=== PATIENT | female | born 1985 | race Caucasian/White ===

== ENCOUNTER → 2020-08-30 | Outpatient (CLI) | payer BC ==
[~2020-08-30] MED LIST: CYCLOBENZAPRINE5 MG PO; HYDROCODON-ACE1 EAC4 PO; IBUPROFEN800 MG PO; OMNICEF 300 MG300 MG PO; PREDNISONE20 MG PO; PROVENTIL HFA6.7 GM INH; TESSALON PERLE100 MG PO; ZITHROMAX1 GM PO
== END ==
LOC: KOH-I 08:00
DX: R74.8 Abnormal levels of other serum enzymes (principal); K76.0 Fatty (change of) liver, not elsewhere classified
CPT/HCPCS: 76705

== ENCOUNTER 2021-01-17 04:16 | Emergency (ER) | payer BC, OTHER ==
[~2021-01-17 04:16] MED LIST changes: -CYCLOBENZAPRINE5 MG PO; -HYDROCODON-ACE1 EAC4 PO; -IBUPROFEN800 MG PO
[2021-01-17 06:52] LABS: HEMOGLOBIN 13.8 gm/dl (12.3-15.3); RED BLOOD COUNT 4.65 M/UL (4.00-5.10); WHITE BLOOD COUNT 13.4 K/UL (4.5-11.0)
[2021-01-17 07:28] LABS: BUN/CREATININE RATIO 25 (0-10)
[2021-01-17] MEDS ORDERED: HYDROCODON-ACE1 EAC4 PO (11:59)
[2021-01-17] MEDS ORDERED: IBUPROFEN800 MG PO (11:59)
[2021-01-17] MEDS ORDERED: CYCLOBENZAPRINE5 MG PO (11:59)
== END 2021-01-17 12:25 | disposition home or self-care (01) ==
LOC: ER1 04:16
PROVIDERS: Family Medicine
DX: R51.9 Headache, unspecified (principal); Z79.899 Other long term (current) drug therapy; M54.12 Radiculopathy, cervical region; Z88.0 Allergy status to penicillin; Z88.1 Allergy status to other antibiotic agents; Z88.8 Allergy status to other drugs, medicaments and biological substances
CPT/HCPCS: 70450; 72125; 72141; 80053; 85025; 85652; 86140; 96374; 96375; 99284; J0780; J1885; J2060

== ENCOUNTER 2021-01-19 10:22 | Emergency (ER) | payer BC, OTHER ==
[~2021-01-19 10:22] MED LIST changes: +CYCLOBENZAPRINE5 MG PO; +HYDROCODON-ACE1 EAC4 PO; +IBUPROFEN800 MG PO
[2021-01-19] MEDS ORDERED: PREDNISONE20 MG PO (15:40)
== END 2021-01-19 16:06 | disposition home or self-care (01) ==
LOC: ER1 10:22
DX: M50.20 Other cervical disc displacement, unspecified cervical region (principal); R20.0 Anesthesia of skin; J45.909 Unspecified asthma, uncomplicated; Z90.49 Acquired absence of other specified parts of digestive tract; Z88.2 Allergy status to sulfonamides; Z88.8 Allergy status to other drugs, medicaments and biological substances; Z79.899 Other long term (current) drug therapy
CPT/HCPCS: 96372; 99283; J1100

== ENCOUNTER 2021-08-31 09:24 | Emergency (ER) | payer BC ==
[2021-08-31 14:23] LABS: HEMOGLOBIN 14.8 gm/dl (12.3-15.3); RED BLOOD COUNT 4.91 M/UL (4.00-5.10); WHITE BLOOD COUNT 15.4 K/UL (4.5-11.0)
[2021-08-31] MEDS ORDERED: ACYCLOVIR800 MG PO (15:47)
[2021-08-31] MEDS ORDERED: NEURONTIN300 MG PO (15:49)
[2021-08-31 16:17] LABS: BUN/CREATININE RATIO 23 (0-10)
== END 2021-08-31 15:27 | disposition home or self-care (01) ==
LOC: ER1 09:24
PROVIDERS: Nurse Practitioner
DX: G50.0 Trigeminal neuralgia (principal); J45.909 Unspecified asthma, uncomplicated; I10 Essential (primary) hypertension; Z88.0 Allergy status to penicillin; Z90.49 Acquired absence of other specified parts of digestive tract
CPT/HCPCS: 72125; 80048; 85025; 85652; 86140; 93005; 99284; J1100

== ENCOUNTER 2021-09-04 12:32 | Inpatient (IN) | payer BC ==
[~2021-09-04] VITALS: Ht 162.6 cm; Wt 113.4 kg
[~2021-09-04 12:32] MED LIST changes: +ACYCLOVIR800 MG PO; +NEURONTIN300 MG PO
[2021-09-04] MEDS ORDERED: XARELTO20 MG PO (13:25)
[2021-09-04] MEDS ORDERED: PROZAC40 MG PO (13:25)
[2021-09-04] MEDS ORDERED: LISINOPRIL5 MG PO (13:26)
[2021-09-04] MEDS ORDERED: TRILEPTAL600 MG PO (13:26)
[2021-09-04] MEDS ORDERED: GLUCOPHAGE 500500 MG PO (13:26)
[2021-09-04 13:27] LABS: HEMOGLOBIN 14.3 gm/dl (12.3-15.3); RED BLOOD COUNT 4.8 M/UL (4.00-5.10); WHITE BLOOD COUNT 10.8 K/UL (4.5-11.0)
[2021-09-04] MEDS ORDERED: ROBAXIN PO (13:27)
[2021-09-04] MEDS ORDERED: CLINDAMYCIN HC300 MG PO (13:27)
[2021-09-04] MEDS ORDERED: MELATONIN3 MG PO (13:27)
[2021-09-04] MEDS ORDERED: NORETHINDRONE0.35 MG PO (13:28)
[2021-09-04 13:47] LABS: BUN/CREATININE RATIO 16 (0-10)
[2021-09-04] MEDS ORDERED: PLAQUENIL200 MG PO (14:23)
[2021-09-05 07:48] LABS: BUN/CREATININE RATIO 23 (0-10)
[2021-09-05 08:28] LABS: WHITE BLOOD COUNT 12.6 K/UL (4.5-11.0)
[2021-09-05 08:31] LABS: RED BLOOD COUNT 4.14 M/UL (4.00-5.10)
[2021-09-06 07:18] LABS: HEMOGLOBIN 11.7 gm/dl (12.3-15.3); WHITE BLOOD COUNT 10.9 K/UL (4.5-11.0)
[2021-09-06 07:37] LABS: BUN/CREATININE RATIO 16 (0-10)
[2021-09-07 07:12] LABS: HEMOGLOBIN 11.7 gm/dl (12.3-15.3); RED BLOOD COUNT 4.02 M/UL (4.00-5.10); WHITE BLOOD COUNT 9.8 K/UL (4.5-11.0)
[2021-09-07 07:46] LABS: BUN/CREATININE RATIO 12 (0-10)
[2021-09-07] MEDS ORDERED: CLINDAMYCIN HC300 MG PO (08:30)
[2021-09-07] MEDS ORDERED: HYDROCODON-ACE1 EAC4 PO (08:36)
[2021-09-07] MEDS ORDERED: IBU800 MG PO ×2 (08:36→08:39)
--- NOTE | 2021-09-07 15:05 | NUR ---
ATTEMPTED TO REMOVE JAYLENE DRAINS X2 PER MD ORDER. DRAIN X1 NOTED AND PULLED WITH EASE. NO COMPLAINTS. DR. GREENFIELD NOTIFIED OF ONLY ONE DRAIN VISABLE AT THIS TIME. MD STATED HE DID NOT PULL SECOND DRAIN AND TO USE LIGHT TO VISUALLY DRAIN AND USE BETADINE FORCEPS TO REMOVE DRAIN.
== END 2021-09-07 15:09 | disposition home or self-care (01) | DRG 144 ==
LOC: ZOBSOF 12:32 → MED SURG 4 12:32
PROVIDERS: Dentist Oral and Maxillofacial Surgery; Physician Assistant; ADMIT Internal Medicine
PROC: 0HR1XJ3 Replacement of Face Skin with Synthetic Substitute, Full Thickness, External Approach (ICD-10-PCS; principal; 2021-09-04 18:05)
PROC: 0J910ZZ Drainage of Face Subcutaneous Tissue and Fascia, Open Approach (ICD-10-PCS; principal; 2021-09-04 18:05)
PROC: 0CDXXZ0 Extraction of Lower Tooth, Single, External Approach (ICD-10-PCS; principal; 2021-09-04 18:05)
PROC: 0C9 Mouth and Throat, Drainage (ICD-10-PCS; principal; 2021-09-04 18:05)
DX: K04.4 Acute apical periodontitis of pulpal origin (principal); D68.61 Antiphospholipid syndrome; H33.8 Other retinal detachments; Z20.822 Contact with and (suspected) exposure to COVID-19; Z68.41 Body mass index [BMI] 40.0-44.9, adult; M27.2 Inflammatory conditions of jaws; K04.7 Periapical abscess without sinus; E11.9 Type 2 diabetes mellitus without complications; E66.9 Obesity, unspecified; I10 Essential (primary) hypertension; M32.9 Systemic lupus erythematosus, unspecified; E28.2 Polycystic ovarian syndrome; G43.909 Migraine, unspecified, not intractable, without status migrainosus; F41.9 Anxiety disorder, unspecified; K76.0 Fatty (change of) liver, not elsewhere classified; Z79.01 Long term (current) use of anticoagulants; Z88.1 Allergy status to other antibiotic agents; Z88.0 Allergy status to penicillin; Z88.8 Allergy status to other drugs, medicaments and biological substances; Z98.1 Arthrodesis status; Z90.49 Acquired absence of other specified parts of digestive tract; Z88.2 Allergy status to sulfonamides; Z95.0 Presence of cardiac pacemaker; Z80.8 Family history of malignant neoplasm of other organs or systems; Z80.2 Family history of malignant neoplasm of other respiratory and intrathoracic organs; Z83.3 Family history of diabetes mellitus
CPT/HCPCS: 36415; 80048; 80053; 82962; 84703; 85025; 85027; 87070; 87205; J1100; J1170; J1885; J2001; J2250; J2270; J2405; J2704; J3010; J7030; J7120; U0002

== ENCOUNTER 2021-09-12 08:48 | Inpatient (IN) | payer BC ==
[~2021-09-12] VITALS: Ht 162.6 cm; Wt 110.2 kg
[~2021-09-12 08:48] MED LIST changes: +CLINDAMYCIN HC300 MG PO; +GLUCOPHAGE 500500 MG PO; +IBU800 MG PO; +MELATONIN3 MG PO; +NORETHINDRONE0.35 MG PO; +PLAQUENIL200 MG PO; +PROZAC40 MG PO; +TRILEPTAL600 MG PO; +XARELTO20 MG PO
[2021-09-12 10:32] LABS: RED BLOOD COUNT 4.13 M/UL (4.00-5.10); WHITE BLOOD COUNT 12.2 K/UL (4.5-11.0)
[2021-09-12] MEDS ORDERED: CLIND PH-BENZOY45 GM TP (13:18)
[2021-09-12] MEDS ORDERED: VITAMIN D250 MCG PO (13:19)
[2021-09-12] MEDS ORDERED: VITAMIN B-121000 MC3 PO (13:19)
[2021-09-12] MEDS ORDERED: FOLIC ACID 1 MG1 MG PO (13:20)
[2021-09-12] MEDS ORDERED: PROVENTIL HFA6.7 GM INH (13:20)
[2021-09-12] MEDS ORDERED: AMITRIPTYLINE H10 MG PO (13:21)
[2021-09-12] MEDS ORDERED: LISINOPRIL5 MG PO (13:26)
[2021-09-12] MEDS ORDERED: ROBAXIN 750 MG750 MG PO (13:27)
[2021-09-13 07:27] LABS: HEMOGLOBIN 10.9 gm/dl (12.3-15.3); RED BLOOD COUNT 3.85 M/UL (4.00-5.10); WHITE BLOOD COUNT 11.9 K/UL (4.5-11.0)
[2021-09-13 07:38] LABS: BUN/CREATININE RATIO 15 (0-10)
[2021-09-14 05:16] LABS: HEMOGLOBIN 10.9 gm/dl (12.3-15.3); RED BLOOD COUNT 3.84 M/UL (4.00-5.10)
[2021-09-14 05:20] LABS: BUN/CREATININE RATIO 12 (0-10)
[2021-09-14 05:37] LABS: WHITE BLOOD COUNT 8.1 K/UL (4.5-11.0)
[2021-09-15 07:14] LABS: HEMOGLOBIN 11.9 gm/dl (12.3-15.3); RED BLOOD COUNT 4.21 M/UL (4.00-5.10); WHITE BLOOD COUNT 9.5 K/UL (4.5-11.0)
[2021-09-15 07:53] LABS: BUN/CREATININE RATIO 7 (0-10)
[2021-09-16 07:46] LABS: HEMOGLOBIN 10.5 gm/dl (12.3-15.3); WHITE BLOOD COUNT 9.1 K/UL (4.5-11.0)
[2021-09-16 07:56] LABS: RED BLOOD COUNT 3.66 M/UL (4.00-5.10)
[2021-09-16 08:04] LABS: BUN/CREATININE RATIO 9 (0-10)
--- NOTE | 2021-09-16 18:58 | NUR ---
CONSULTED WITH DR. GREENFIELD REGARDING ALANNAH D/C TOMORROW. HE WANTS 7A SHIFT TO PERFORM WOUND CARE WITH IODINE SWABS, PULL THAT LAST DRAIN THAT IS STILL PLACED IN JAW, AND COVER WITH 4X4, ABD, AND TAPE.
[2021-09-17 06:39] LABS: RED BLOOD COUNT 3.9 M/UL (4.00-5.10); WHITE BLOOD COUNT 9.7 K/UL (4.5-11.0)
[2021-09-17 07:01] LABS: BUN/CREATININE RATIO 8 (0-10)
--- NOTE | 2021-09-17 11:21 | NUR ---
Midline that was placed by me on 09/14/21 was not flushing. Dressing removed and statlock was changed with midline adjustment. Midline aspirates and flushes easily. Dressing reapplied and midline secured. Nurse instructed to contact me if any other issues with the midline arise.
[2021-09-17] MEDS ORDERED: ERTAPENEM1 GM IV (13:59)
== END 2021-09-17 14:49 | disposition home or self-care (01) | DRG 158 ==
LOC: ER1 08:48 → CDU 11:25 → M/S 20:32
PROVIDERS: Dentist Oral and Maxillofacial Surgery; Physician Assistant Medical; Student in an Organized Health Care Education/Training Program; ADMIT Internal Medicine
PROC: 0J910ZZ Drainage of Face Subcutaneous Tissue and Fascia, Open Approach (ICD-10-PCS; principal; 2021-09-12 19:07)
DX: K12.2 Cellulitis and abscess of mouth (principal); D68.61 Antiphospholipid syndrome; E11.9 Type 2 diabetes mellitus without complications; I10 Essential (primary) hypertension; M32.9 Systemic lupus erythematosus, unspecified; E66.01 Morbid (severe) obesity due to excess calories; Z20.822 Contact with and (suspected) exposure to COVID-19; E28.2 Polycystic ovarian syndrome; G43.909 Migraine, unspecified, not intractable, without status migrainosus; K76.0 Fatty (change of) liver, not elsewhere classified; Z79.01 Long term (current) use of anticoagulants; Z98.41 Cataract extraction status, right eye; Z98.42 Cataract extraction status, left eye; Z98.890 Other specified postprocedural states; Z90.49 Acquired absence of other specified parts of digestive tract; Z88.2 Allergy status to sulfonamides; Z88.0 Allergy status to penicillin; Z88.8 Allergy status to other drugs, medicaments and biological substances; Z79.84 Long term (current) use of oral hypoglycemic drugs; Z79.899 Other long term (current) drug therapy; Z83.3 Family history of diabetes mellitus; Z80.8 Family history of malignant neoplasm of other organs or systems; Z82.49 Family history of ischemic heart disease and other diseases of the circulatory system; Z84.1 Family history of disorders of kidney and ureter
CPT/HCPCS: 36415; 70491; 80048; 80053; 80202; 82962; 83036; 83605; 83735; 84703; 85025; 87040; 87070; 87205; 96372; 96374; 96375; 99284; C1751; J0696; J1100; J1170; J1335; J1885; J2001; J2250; J2270; J2370; J2405; J2704; J3010; J3370; J7030; J7070; J7120; Q9967; U0002

== ENCOUNTER 2021-09-26 22:28 | Emergency (ER) | payer BC ==
[~2021-09-26 22:28] MED LIST changes: +AMITRIPTYLINE H10 MG PO; +CLIND PH-BENZOY45 GM TP; +ERTAPENEM1 GM IV; +FOLIC ACID 1 MG1 MG PO; +LISINOPRIL5 MG PO; +ROBAXIN 750 MG750 MG PO; +VITAMIN B-121000 MC3 PO; +VITAMIN D250 MCG PO
== END 2021-09-27 00:14 | disposition home or self-care (01) ==
LOC: ER1 22:28
DX: T80.89XA Other complications following infusion, transfusion and therapeutic injection, initial encounter (principal); E11.9 Type 2 diabetes mellitus without complications; I10 Essential (primary) hypertension; Z88.5 Allergy status to narcotic agent; Z88.1 Allergy status to other antibiotic agents
CPT/HCPCS: 96374; 96375; 99283; J1642; J2997